=== PATIENT | female | born 1955 | race Two or more races ===

== ENCOUNTER → 2018-07-27 | Day surgery (SDC) | payer MEDICARE, OTHER ==
--- NOTE | 2018-07-27 18:59 | OP ---
DATE OF OPERATION: 07/27/2018 PREOPERATIVE DIAGNOSIS: Right axillary tail chest wall mass. POSTOPERATIVE DIAGNOSIS: Right axillary tail chest wall mass. PROCEDURE: Right ultrasound guide core biopsy with clip placement. ANESTHESIA: Local. ATTENDING SURGEON: Farnaz Mcarthur M.D. ESTIMATED BLOOD LOSS: Minimal. COMPLICATIONS: None. DESCRIPTION OF PROCEDURE: Patient was made aware of the risks and benefits of the procedure and consented. She was placed in supine position under sterile conditions. 1% lidocaine for local anesthesia, small radha was made in the skin. Using a 13 gauge suction biopsy device via lateral approach under ultrasound guidance multiple cores were obtained and submitted to pathology. Likewise under ultrasound guidance, bowtie clip was placed into the biopsy region. Well tolerated by patient. Steri-Strips and sterile bandage was applied. We will contact her with results. FARNAZ MCARTHUR M.D. CESAR/[id number]
--- NOTE | 2018-07-30 13:08 | PATH ---
Surgical Pathology Report Patient Name: CALVIN COULTER [facility]. Rec. #: [id number] /Age/Gender: 1955 (Age: 63) / F Account: [id number] Location: [facility] Taken: 07/27/2018 Received: 07/27/2018 Reported: 07/30/2018 Physicians: Farnaz Mcarthur M.D. Specimen(s) Received RIGHT CHEST WALL AXILLARY CORE BIOPSY Clinical History Ultrasound findings: Suspicious Final Diagnosis RIGHT CHEST WALL AXILLARY TAIL, CORE BIOPSY: POORLY DIFFERENTIATED CARCINOMA, CONSISTENT WITH BREAST PRIMARY. COMMENT: Immunohistochemical stained slides demonstrate tumor cells to be positive for AE1/AE3, CK7, Linda-3, Mammaglobin (focal), and E-cadherin, while negative for CK20, GCDFP, and TTF-1. The morphology and immunophenotype support a diagnosis of carcinoma of breast primary, ductal phenotype. Immunohistochemistry stains Linda-3, Mammaglobin, and GCDFP performed at [place], [place] ([id number]) interpreted at [facility]. Immunohistochemistry stains AE1/AE3, CK7, CK20, E-cadherin, and TTF-1, performed and interpreted at [facility]. Positive and negative controls (internal if applicable) show appropriate results. Results of Estrogen Receptor (ER) and Progesterone Receptor (PA) studies performed on block "1" at [facility] are as follows: ER (clone [id number] mouse monoclonal antibody by [employer]ica): 100% nuclear staining with strong intensity (Positive). PA (clone16 mouse monoclonal antibody by Leica): <1% nuclear staining (Negative). Her2 (IHC) pending. An addendum report to follow. Positive and negative controls (internal if applicable) show appropriate results. Formalin fixation and cold ischemic times are within current ASCO/CAP recommendations for ER, PA and Her2 testing. Electronically Signed Sia Chavarria M.D. Gross Description Received in formalin labeled "right axillary tail biopsy," is a 0.8 x 0.5 x 0.1 cm aggregate of mcgovern brown fragments of fibroadipose tissue. The formalin is filtered and the specimen is entirely submitted in one cassette. Time to formalin fixation: Less than one minute Total formalin fixation time: Approximately 26 hours. 07/28/201807/28/2018
== END | disposition home or self-care (01) ==
LOC: FRADUS-SUR 15:22
PROVIDERS: ATTEND Surgery Surgical Oncology
PROC: 0HBT3ZX Excision of Right Breast, Percutaneous Approach, Diagnostic (ICD-10-PCS; principal; 2018-07-27)
DX: C50.611 Malignant neoplasm of axillary tail of right female breast (principal); Z17.0 Estrogen receptor positive status [ER+]; N63.31 Unspecified lump in axillary tail of the right breast
CPT/HCPCS: 19083; 87899; 88305-TC; 88341-TC; 88342-TC; A4648